=== PATIENT | male | born 1945 | race Caucasian/White ===

== ENCOUNTER → 2019-07-25 | Outpatient (CLI) | payer MEDICARE, OTHER ==
--- NOTE | 2019-07-25 14:15 | RADIOLOGY REPORT (SQ) ---
EXAM DESCRIPTION: CHEST 2 VIEWS COMPLETED DATE/TIME: 07/25/2019 12:53 pm REASON FOR STUDY: productive cough COMPARISON: None. EXAM PARAMETERS: NUMBER OF VIEWS: two views TECHNIQUE: Digital Frontal and Lateral radiographic views of the chest acquired. RADIATION DOSE: NA LIMITATIONS: none FINDINGS: LUNGS AND PLEURA: No opacities, masses or pneumothorax. No pleural effusion. MEDIASTINUM AND HILAR STRUCTURES: No masses or contour abnormalities. HEART AND VASCULAR STRUCTURES: Heart normal size. No evidence for failure. BONES: Mild increased kyphosis and degenerative changes involving the thoracic spine. No acute find ings. HARDWARE: None in the chest. OTHER: No other significant finding. IMPRESSION: 1. NO ACUTE RADIOGRAPHIC FINDING IN THE CHEST. 2. In view of the given history and symptoms, further evaluation with additional imaging may be help ful. TECHNICAL DOCUMENTATION: JOB ID: [id number] 2010 [employer]- All Rights Reserved Reading location - IP/workstation name: [email or web address]
== END ==
LOC: RAD 12:18
PROVIDERS: ATTEND Surgery
DX: R05 Cough (principal)
CPT/HCPCS: 71046

== ENCOUNTER 2019-08-06 06:52 | Day surgery (SDC) | payer MEDICARE, OTHER ==
[2019-08-04 11:16] LABS: HEMATOCRIT 36.1 % (37.9-51.0); MEAN CORPUSCULAR HEMOGLOBIN 25.5 pg (27.0-33.4); MEAN CORPUSCULAR HGB CONC 33.2 g/dL (32.0-36.0); MEAN CORPUSCULAR VOLUME 77 fl (80-97); PLATELET COUNT 213 10^3/uL (150-450); RED CELL DISTRIBUTION WIDTH 15.9 % (11.5-14.0)
[2019-08-04 11:43] LABS: ANION GAP 9 (5-19); BLOOD UREA NITROGEN 20 mg/dL (7-20); CALCIUM 9.8 mg/dL (8.4-10.2); CARBON DIOXIDE 28 mmol/L (22-30); CHLORIDE 102 mmol/L (98-107); GLUCOSE 154 mg/dL (75-110)
--- NOTE | 2019-08-04 13:15 | EKG REPORT ---
SEVERITY:- OTHERWISE NORMAL ECG - SINUS BRADYCARDIA : Confirmed by: Sae Lino MD 04-Aug-2019 13:14:46
[~2019-08-06 06:52] MED LIST: LACTATED RINGERS 1000 ML IV PRN; LIDOCAINE 0.5% INJ-PF (5 MG/ML) 50 ML SDV SUBCUT PRN
[2019-08-06] MEDS ORDERED: PROPOFOL INJ 200 MG/20 ML VIAL IV ONE (06:58)
[2019-08-06 08:31] LABS: POTASSIUM 4.4 mmol/L (3.6-5.0)
--- NOTE | 2019-08-06 09:27 | Discharge Summary ---
Discharge Summary (SDC) - Discharge Final Diagnosis: Anemia Date of Surgery: 08/06/19 Discharge Date: 08/06/19 Condition: Good Forms: ASU Anesthesia D/C Instruction, Discharge POC-Surgical Service Treatment or Instructions: [facility] [address] [address] POST ENDOSCOPY DISCHARGE INSTRUCTIONS 1. Diet: Start clear liquids that a regular diet as tolerated. 2. Resume all preoperative medications. All oral anticoagulants and aspirins can be resumed 24 hours after procedure. 3. If a polypectomy was performed some bleeding per rectum may occur. This should stop within 3 days. If not, please contact the office. 4. If you had a colonoscopy you may experience some bloating and delayed return of normal bowel function for several days, your regular bowel movement pattern should resume within a week. 5. Please contact [facility] at to make an appointment with Dr. Ruffin for 1 to 3 weeks following procedure. 6. If you have any questions or concerns regarding your care,treatment plan or follow up, please contact our office. 7. Per clinical guidelines we recommend you undergo a repeat colonoscopy in 5- 10 years. Referrals: BRENDA RUFFIN MD [ACTIVE STAFF] - Discharge Diet: As Tolerated Discharge Activity: Activity As Tolerated Home Care Assistance: None Needed Report the Following to Your Physician Immediately: Shortness of Breath, Increase in Pain, Fever over 101 Degrees
--- NOTE | 2019-08-06 09:35 | Operative Report ---
Operative Report DATE OF SURGERY: 08/06/19 PREOPERATIVE DIAGNOSIS: 1. Anemia. 2. History of gastritis. 3. Remote hist ory of colon polyps POSTOPERATIVE DIAGNOSIS: 1. Diffuse gastritis. 2. Proximal duodenitis. 3. Retained vegetable matter in the colon OPERATION: 1. Esophagogastroduodenoscopy. 2. Cold forceps biopsy of gastric antrum and first portion of duodenum. 3. Total colonoscopy to cecum with photodocumentation SURGEON: BRENDA CHRISTIANSON COMPLICATIONS: None ESTIMATED BLOOD LOSS: Scant INTRAOPERATIVE FINDINGS: See below PROCEDURE: The patient was taken the preop holding area to the main operating room where LMAC anesthesia was induced patient was placed in semirecumbent position oral mouthpiece inserted, surgical plan and surgical timeout were conducted. The flexible adult upper endoscope was advanced to the oropharynx, down the esophagus through the stomach into the first and second portions of the duodenum. There was no evidence of tumor, stricture, active bleeding. There was diffuse streaking of the gastric antrum, with fine nodularity of the mucosa consistent with chronic gastritis and possible source of chronic, low-grade GI bleeding. There Was no elmo ulcer. The scope was retroflexed in the stomach looking the GE junction, there was no significant hiatal hernia. Random biopsies were taken of the gastric antrum, as well as the first portion of the duodenum. The first portion of the duodenum was moderately inflamed, but again no ulcer or stricture visualized. Bleeding from the biopsy sites was minimal. The scope was brought back through the GE junction in a prograde fashion; the Z line was at approximately 37 cm from the incisor. The esophagus was visualized and found to have no evidence of tumor stricture bleeding polyp or ulceration. There were no gastric varices. Scope was withdrawn from the patient's oropharynx. He tolerated the procedure well The patient was then placed in the extreme left lateral cubitus position, knees to chest. A rectal exam was performed. There was no palpable anorectal pathology detected. The flexible adult colonoscope was advanced to the anorectal canal all the way to the cecum. Fortunately this was not an optimally prepped bowel with a significant amount of residual vegetable, green leafy material tainted in the right colon and cecum. A significant amount of time was spent irrigating cecum, and right colon with pleat removal of all of the usual vegetable matter. We did visualize the ileocecal valve, and approximately 85% of the cecal wall. The scope was then withdrawn through the length of the ascending colon, again gating and suctioning out as much fecal matter as practical. The scope was brought back through the transverse colon and left colon seeing no significant pathology. The scope was brought through the anorectal canal carefully. No polyps, tumor, or diverticulosis identified. Scope withdrawal of the patient's anus. He tolerated procedure well. Per surveillance guidelines, patient be an appropriate candidate for consideration for colonoscopy in 5 to 10 years.
[2019-08-06 11:25] VITALS: BP 154/58
== END 2019-08-06 11:00 | disposition home or self-care (01) ==
LOC: OROUT 06:52
PROVIDERS: ATTEND Surgery
DX: K29.50 Unspecified chronic gastritis without bleeding (principal); K29.80 Duodenitis without bleeding; D50.9 Iron deficiency anemia, unspecified; Z86.010 Personal history of colon polyps; Z79.899 Other long term (current) drug therapy; E11.9 Type 2 diabetes mellitus without complications; I10 Essential (primary) hypertension; E78.00 Pure hypercholesterolemia, unspecified; Z79.84 Long term (current) use of oral hypoglycemic drugs; Z79.82 Long term (current) use of aspirin
CPT/HCPCS: 43239; 93005; 36415 ×2; 82947; 84132; 85027; 80048; 88342 ×2; 88305 ×2; 93010; 00813; G0105; J2704; 45378; 813